=== PATIENT | male | born 1990 | race African-American/Black ===

== ENCOUNTER 2024-08-06 11:12 | Day surgery (SDC) | payer BC ==
[2024-08-06 11:45] LABS: Absolute Basophils 0.1 K/uL (0-0.5); Absolute Eosinophils 0.1 K/uL (0-0.5); Absolute Lymphocytes (CBC) 1.7 K/uL (0.7-4.9); Absolute Monocytes 0.6 K/uL (0.1-1.3); Absolute Neutrophil 3.2 K/uL (1.8-8.0); Eosinophils % 1.2 % (0-4.4); Hemoglobin 15.3 g/dL (13.6-17.9); Lymphocytes % 30.7 % (15.3-44.8); MCH 28.7 pg (27.0-35.0); MCHC 33.4 g/dL (32.0-36.0); MCV 86.2 fL (80-100); MPV 9.1 fL (7.6-11.3); Monocytes % 10.4 % (3.3-12.3); Neutrophils % 56.7 % (41.7-73.7); Nucleated Red Blood Cells % 0.1 % (0-0); Platelets 237 thou/uL (152-406); RBC Red Blood Cell Count 5.34 M/uL (4.33-5.43); Red Cell Distribution Width 13.1 % (12.1-15.2)
[2024-08-06] MEDS: Ringers Lactate 1,000 ML IV ONE (11:49)
[2024-08-06 11:57] LABS: Anion Gap 9.4 mEq/L (5.0-15.0); Potassium 4.4 mEq/L (3.5-5.1)
[2024-08-06] MEDS ORDERED: FENTANYL CITR 100 MCG/2 ML ONE (13:06)
[2024-08-06] MEDS ORDERED: ROCURONIUM 50 MG/5 ML VIAL IV ONE (13:06)
[2024-08-06] MEDS ORDERED: propofoL 200 MG/20 ML VIAL IV ONE (13:06)
[2024-08-06] MEDS ORDERED: MIDAZOLAM HCL 2 MG/2 ML INJ ONE (13:06)
[2024-08-06] MEDS ORDERED: ONDANSETRON 4 MG/2 ML VIAL ONE (13:06)
[2024-08-06] MEDS ORDERED: LIDOCAINE 2% MPF 5 ML VIAL ONE (13:06)
[2024-08-06] MEDS: CEFAZOLIN SODIUM 1 GM/VIAL ONE (13:22)
[2024-08-06] MEDS ORDERED: dexAMETHasone 10 MG/ML VIAL ONE (13:33)
[2024-08-06] MEDS ORDERED: GLYCOPYRROLATE 0.2 MG/ML SYR ONE (13:37)
[2024-08-06] MEDS: BUPIVACAINE 0.5% PF 10 ML VIAL ONE (13:42)
--- NOTE | 2024-08-06 14:07 | P.BOP ---
Preoperative diagnosis: posterior neck tender subcutaneous mass Postoperative diagnosis: same Primary procedure: Excisional biopsy of posterior neck tender subcutaneous mass 4x4cm Estimated blood loss: <10cc Specimen: mass Findings: mass Anesthesia: General Complications: None Transferred to: Recovery Room Condition: Good
[2024-08-06] MEDS: CODEINE 30MG/APAP 300MG TAB ONE (15:00)
[2024-08-06 15:05] VITALS: BP 128/92; O2SAT 98
[2024-08-06 15:33] VITALS: TEMP 97.6
--- NOTE | 2024-08-06 22:30 | DS ---
Date of Discharge: 08/06/2024 Diagnosis: Posterior neck tender mass. Procedure: Excisional biopsy of posterior neck tender mass. Condition: Stable. Disposition: Home. Activity: As tolerated. No heavy lifting. Discharge Instructions: Follow up in my office in 10 days to remove the stitches. If he is on the p rison system, the doctor there want to remove the sutures, then it can be done in about 10 days. Med ications include Tylenol No. 3 q.4 hours p.r.n. pain and Bactrim DS p.o. b.i.d. See orders. JUAN/MODL Voice ID: [id number] Report ID: [id number]
--- NOTE | 2024-08-06 22:30 | OP ---
Date of Procedure: 08/06/2024 Surgeon: Darrius Del Rio MD Preoperative Diagnosis: Posterior neck tender subcutaneous mass. Postoperative Diagnosis: Posterior neck tender subcutaneous mass. Procedure Performed: Excisional biopsy of posterior neck tender subcutaneous mass, 4 x 4 cm. Estimated Blood Loss: Less than 10 cc. Specimen: Mass. Finding: Mass. Anesthesia: General plus local. Complications: None. Indications: This is a case who comes to us with a tender mass, increasing in size since the last vi sit. He wants that excised. The benefits, alternatives, and risks of excision fully explained, whic h include, but not limited to infection, bleeding, damage to adjacent structures, anesthesia complica tion, recurrence, NH, and even . He also understands this may not relieve symptoms. He might n eed more than one surgical intervention. He understood, signed a consent. The area of concern was m arked by me and the patient in the holding room. Description Of Procedure: The patient was brought to the operating room, placed in supine position, anesthesia was induced without complication. The patient was placed in lateral decubitus position wi th proper protection. Posterior neck area was prepped and draped in sterile fashion. A time-out was called. Local anesthetic was applied at the end since we did not want miss the mass. An incision w as made in that region. Incision was carried down to subcutaneous tissue. We found the mass goes al l the way down to fascia of the muscle, does not penetrate the fascia of the muscle. Mass was comple tely excised. The area was irrigated. Hemostasis was obtained, injection of local anesthetic, and c losed the area with suture mattress 3-0 nylon interrupted. The patient tolerated the procedure well. Sponge count and instrument counts correct. Area was covered with sterile dressings. The patient was sent to recovery in stable condition. HM/MODL Voice ID: [id number] Report ID: [id number]
== END 2024-08-06 15:57 | disposition home or self-care (01) ==
LOC: OR 11:12
PROVIDERS: ATTEND Surgery
PROC: 0JB40ZZ Excision of Right Neck Subcutaneous Tissue and Fascia, Open Approach (ICD-10-PCS; 2024-08-06)
PROC: 0JB50ZZ Excision of Left Neck Subcutaneous Tissue and Fascia, Open Approach (ICD-10-PCS; principal; 2024-08-06 12:30)
DX: D17.0 Benign lipomatous neoplasm of skin and subcutaneous tissue of head, face and neck (principal)
CPT/HCPCS: 85025; 80048; 36415; 88304; 11424; J2704; J2003; J2250; J3010; J1100; J2405; J0690; 88305; J7120